=== PATIENT | female | born 1990 | race Caucasian/White ===

== ENCOUNTER 2017-04-19 00:36 | Inpatient (IN) | payer OTHER ==
[~2017-04-19] VITALS: Ht 154.9 cm; Wt 77.3 kg
[2017-04-19] VITALS (18 sets, daily range): BP systolic 104–111; BP diastolic 61–73; PULSE 64–99; TEMP 36.1–36.7; O2SAT 96–100; Ht 154.9 cm; Wt 77.3 kg
[~2017-04-19 00:36] MED LIST: PRENTAB26 PO
[2017-04-19] MEDS ORDERED: LACTATED RINGER'S 1000ML 1,000 ML IV SCH ×3 (00:48→02:46)
[2017-04-19] MEDS ORDERED: CITRIC ACID/SODIUM CITRATE 15 ML UDC PO STA (01:02)
[2017-04-19] MEDS ORDERED: CEFAZOLIN IV 2,000 MG in SYRINGE 0 ML IV STA (01:02)
[2017-04-19 01:18] LABS: BASO % 0.2 %; BASO ABS # 0.02 K/uL (0-0.2); EOS % 0.9 %; IG% 0.2 %; LYMPH % 23.5 %; LYMPH ABS # 1.98 K/uL (1.2-3.4); MEAN CELL VOLUME 81.5 fL (80-100); MEAN CORPUSCULAR HEMOGLOBIN 26.2 pg (25-34); MEAN PLATELET VOLUME 10.2 fL (7.4-10.4); MONO % 8.3 %; NEUT % 66.9 %; PLATELET COUNT 149 K/uL (130-400); RED BLOOD COUNT 4.05 M/uL (4.2-5.4); WHITE BLOOD COUNT 8.44 K/uL (4.8-10.8)
--- NOTE | 2017-04-19 01:20 | HISTORY & PHYSICAL EXAMINATION ---
DATE OF ADMISSION: 04/19/2017 HISTORY OF PRESENT ILLNESS: Tere arrived in the dumper operator of 04/19/2017. She is 40 weeks and 0 days. She has had 2 prior sections and was scheduled for a section 3 days from now with Dr. Nuno. She reported having contractions, no leakage of fluid, and presented to the hospital. On presentation, her heart rate is category 1, she is having contractions every 5-6 minutes, her cervix is 2-3 cm. HISTORY: She is group B strep negative. Labs normal, ultrasound normal. MEDICAL HISTORY: Healthy. REVIEW OF SYSTEMS: Negative. PHYSICAL EXAMINATION: VITAL SIGNS: Stable. She is afebrile. CHEST: Clear. CARDIOVASCULAR: Normal rate and rhythm. No audible murmur. ABDOMEN: Gravid. heart rate reactive. CERVIX: 2-3 cm, 50%. IMPRESSION AND PLAN: Discussed that she is 40 weeks and there is no advantage to waiting at this stage and she does look like she is entering labor, so we recommended . Discussed the risks including but not limited to the risks of bleeding, infection, injury to bowel, bladder, ureter, vessels, deep vein thrombosis, pulmonary embolus. The patient agrees to section. She does not wish tubal ligation. Full informed consent.
[2017-04-19 01:21] LABS: COMPLETE YES; MEAN CORPUSCULAR HGB CONC 32.1 g/dl (32-36)
[2017-04-19] MEDS ORDERED: OXYTOCIN INJ 10 UNITS/ML VIAL ONE (01:35)
[2017-04-19] MEDS ORDERED: FENTANYL CITRATE INJ 50 MCG/1 ML 2 ML VIAL ONE (01:36)
[2017-04-19] MEDS ORDERED: MoRPHine SULFATE PF 1 MG/ML 10 ML AMP/VIAL ONE (01:37)
[2017-04-19 01:39] LABS: ALB/GLOB RATIO 0.8 (0.9-2); ALKALINE PHOSPHATASE 146 U/L (45-117); ALT/SGPT 32 U/L (12-78); AST/SGOT 22 U/L (15-37); BLOOD UREA NITROGEN 8 mg/dl (7-18); BUN/CREATININE RATIO 14.8 (10-20); CARBON DIOXIDE 22 mmol/L (21-32); CHLORIDE 108 mmol/L (98-107); CREATININE 0.52 mg/dl (0.60-1.20); GLUCOSE 86 mg/dl (70-99); POTASSIUM 3.5 mmol/L (3.5-5.1); SODIUM 139 mmol/L (136-145)
[2017-04-19] MEDS ORDERED: BUPIVACAINE 0.5 % 5 MG/1 ML PF 10ML VIAL ONE (02:10)
[2017-04-19] MEDS ORDERED: PHENYLEPHRINE 100MCG/ML 5ML SYR ONE (02:21)
[2017-04-19] MEDS ORDERED: EpHEDrine SULFATE 50MG/5ML SYR ONE (02:21)
--- NOTE | 2017-04-19 02:48 | [facility] Post Operative Brief Note ---
Immediate Operative Summary Operative Date Apr 19, 2017. Pre-Operative Diagnosis repeat C/S, labor Post-Operative Diagnosis same Procedure(s) Performed Low segment transverse C/S Surgeon Susannah Metal Ceiling Hanger Surgeon(s) Solpaul Estimated Blood Loss 600ml Findings normal anatomy Specimens Cord gases Drains Houser Anesthesia Spinal/local Disposition L&D
[2017-04-19] MEDS ORDERED: NALOXONE HCL INJ 0.08 MG in SYRINGE 1.8 ML IV PRN (02:58)
[2017-04-19] MEDS ORDERED: LACTATED RINGER'S 1000ML 500 ML IV PRN (02:58)
[2017-04-19] MEDS ORDERED: NALOXONE HCL INJ 1 MG in SODIUM CHLORIDE 0.9% 1000ML 1,000 ML IV PRN ×4 (02:58)
[2017-04-19] MEDS ORDERED: SODIUM CHLORIDE 0.9% 1000ML 1,000 ML IV PRN (02:58)
[2017-04-19] MEDS ORDERED: SUPERCREAM 0.870 % 15GM JAR EXT PRN (03:00)
[2017-04-19] MEDS ORDERED: DC INTRASPINAL MORPHINE SCH (03:00)
[2017-04-19] MEDS ORDERED: SENNA 8.6 MG TAB PO PRN (03:00)
[2017-04-19] MEDS ORDERED: EpHEDrine SULFATE INJ 50 MG/ML AMP IV PRN (03:00)
[2017-04-19] MEDS ORDERED: NALBUPHINE HCL INJ 10 MG/ML AMP IV PRN (03:00)
[2017-04-19] MEDS ORDERED: DiphenhydrAMINE HCL 50 MG/ML VIAL IV PRN ×2 (03:00→20:00)
[2017-04-19] MEDS ORDERED: ONDANSETRON INJ 2 MG/ML 2 ML VIAL IV PRN ×2 (03:00→21:00)
[2017-04-19] MEDS ORDERED: LANOLIN OINT EXT PRN ×2 (03:00)
[2017-04-19] MEDS ORDERED: PROMETHAZINE HCL INJ 25 MG in SODIUM CHLORIDE 0.9% 50ML 50 ML IV PRN ×2 (03:00→21:00)
[2017-04-19] MEDS ORDERED: BENZOCAINE 20% AER SPR 82.5 GM CAN EXT PRN (03:00)
[2017-04-19] MEDS ORDERED: MAGNESIUM HYDROXIDE SUSP 30 ML UDC PO PRN (03:00)
[2017-04-19] MEDS ORDERED: HYDROCORTISONE ACETATE 25 MG SUPP PR PRN (03:00)
[2017-04-19] MEDS ORDERED: NO NARCOTICS OR SEDATIVES SCH (03:00)
[2017-04-19] MEDS ORDERED: NALOXONE HCL 0.4 MG/1 ML VIAL/CARP IV PRN (03:00)
[2017-04-19] MEDS ORDERED: MoRPHine SULFATE PF 1 MG/ML 10 ML AMP/VIAL EPI PRN (03:00)
--- NOTE | 2017-04-19 03:04 | Anesthesiology Progress Note ---
Anesthesia Post Op Note Date & Time Apr 19, 2017 at 03:04 Notes Mental Status: alert / awake / arousable, participated in evaluation Pt Amnestic to Procedure: No Nausea / Vomiting: adequately controlled Pain: adequately controlled Airway Patency, RR, SpO2: stable & adequate BP & HR: stable & adequate Hydration State: stable & adequate Neuraxial Anesthesia: was administered, sensory block is resolving Anesthetic Complications: no major complications apparent
[2017-04-19] MEDS: OXYTOCIN INJ 20 UNITS in LACTATED RINGER'S 1000ML 1,000 ML IV SCH ×2 (03:19→11:23)
[2017-04-19] MEDS: KETOROLAC TROMETHAMINE 30 MG/ML VIAL IV. PRN ×2 (05:29→15:53)
[2017-04-19] MEDS ORDERED: CEFAZOLIN IV 2,000 MG in DEXTROSE 5% 50ML 50 ML IV SCH (06:00)
--- NOTE | 2017-04-19 07:02 | OPERATIVE REPORT ---
DATE OF OPERATION: 04/19/2017 PREOPERATIVE DIAGNOSES: 1. Repeat section. 2. The patient in active labor. POSTOPERATIVE DIAGNOSES: 1. Repeat section. 2. The patient in active labor. PROCEDURE: Low segment transverse section. SURGEON: Axel Davalos MD. HAIR SPINNING MACHINE OPERATOR: Alyssa Small RN. ESTIMATED BLOOD LOSS: 600 mL. FINDINGS: Normal anatomy. SPECIMENS: Cord gases. DRAINS: Houser catheter. ANESTHETIC: Spinal and 0.5% Marcaine local anesthetic. DISPOSITION: Labor and delivery. DESCRIPTION OF PROCEDURE: Tere was given a spinal anesthetic, prepped and draped in supine position with a leftward tilt. Houser catheter placed by nursing. We did test the area for adequacy of block and on her upper right side, it was somewhat inadequate so we injected with 10 mL of 0.5% Marcaine and this improved things. It should be noted she received 2 grams Ancef preop. Incision made on the previous Pfannenstiel, cutting down to subcutaneous fat through the fascia. It should be noted her rectus muscles were completely , likely related to prior pregnancies or cesareans. We were able to cut the fascia and dissect away from the rectus muscles laterally and again there were split in the midline already. Peritoneal cavity was entered in superior location and then extended opening to allow exposure. Bladder retractor placed and then Metzenbaums used to dissect the bladder flap away and then scalpel used to make a low transverse incision on the uterus. Entry into the uterus was done bluntly and then opening extended bluntly with the flex o writer operator's fingers. Membranes were ruptured at this stage and then baby was delivered by gentle flexion of the head and then pressure on the abdomen. Mouth and then nares suctioned. There was some thin meconium. No nuchal cord. Baby delivered vigorous male . Cord clamped and cut. Cord gases obtained. Cord blood obtained. Placenta removed. IV Pitocin started. Uterus exteriorized. We ensured all the placenta was removed and then uterus closed in the usual fashion, a running 0 Monocryl locked and second reinforcing 0 Monocryl nonlocked. After generous irrigation and suction of the cul-de-sac and bladder flap regions, uterus was placed back in the peritoneal cavity and hemostasis was excellent. We checked in the retropubic area, hemostasis was excellent. The rectus muscles were too widely that I could not bring them together without tearing the muscle so these were not reapproximated. The fascia was then closed with 0 Vicryl and then reinforcing interrupted 0 Vicryls. Subcutaneous fat irrigated and closed with 2-0 Vicryl and skin closed with 4-0 subcuticular Monocryl. Sponge and instrument counts correct. Urine was clear at the end of procedure. Steri-Strips applied to the incision. I attest to the content of the Intraoperative Record and any orders documented therein. Any exception s are noted below.
[2017-04-19] MEDS ORDERED: MEASLES, MUMPS & RUBELLA VIRUS VIAL SQ. ONE (08:30)
[2017-04-19] MEDS: DOCUSATE SODIUM 100 MG CAP PO SCH ×2 (08:49→20:33)
[2017-04-19] MEDS: SIMETHICONE 80 MG CHEW PO SCH ×4 (08:49→20:33)
[2017-04-19] MEDS: PRENATAL VITAMIN TAB PO SCH (08:49)
[2017-04-19] MEDS ORDERED: ZOLPIDEM TARTRATE 5 MG TAB PO PRN (21:00)
[2017-04-19] MEDS ORDERED: KETOROLAC TROMETHAMINE 30 MG/ML VIAL IV. PRN (21:00)
[2017-04-19] MEDS ORDERED: OXYCODONE/ACETAMINOPHEN 5-325 TAB PO PRN ×2 (21:00)
[2017-04-19] MEDS ORDERED: MEPERIDINE HCL 50 MG/ML CARP IV PRN ×2 (21:00)
[2017-04-19] MEDS ORDERED: ACETAMINOPHEN/CODEINE 300/30MG TAB PO PRN (22:15)
[2017-04-20] MEDS ORDERED: TYLENOL #3 HOME PACK PO SCH
[2017-04-20] MEDS ORDERED: MOTRIN HOME PACK 600 MG (4)BTL PO SCH
--- NOTE | 2017-04-20 06:29 | OB/GYN Progress Note ---
[facility] Progress Note Date of Service Apr 20, 2017. Subjective conversation w/ patient, physical exam, chart review, lab review Ambulation: ambulating normally Voiding: no voiding problems Passing Gas: Yes Diet Tolerance: Clear Liquids Lochia: Small Feeding Type: Breast Feeding Pain: 2/10 pain Review of Systems Constitutional: No fever, No chills Respiratory: No shortness of breath Cardiac: No chest pain Abdomen: No nausea, No vomiting Female : No dysuria Objective Vital Signs Date Time Temp Pulse Resp B/P (MAP) Pulse Ox O2 Delivery O2 Flow Rate FiO2 04/19/17 23:15 96 Room Air 04/19/17 23:15 36.7 69 18 104/61 (75) 96 Room Air 04/19/17 21:15 20 99 04/19/17 20:39 36.5 99 20 111/73 (86) 99 Room Air 04/19/17 20:05 18 99 04/19/17 19:07 18 98 04/19/17 18:15 18 99 04/19/17 17:15 18 97 04/19/17 16:15 18 99 04/19/17 15:30 36.6 64 16 108/72 (84) 99 Room Air 04/19/17 15:30 99 Room Air 04/19/17 15:15 16 99 04/19/17 14:15 16 99 04/19/17 13:15 16 99 04/19/17 12:15 16 100 04/19/17 11:15 16 100 04/19/17 11:15 36.6 65 16 107/72 (84) 99 Room Air 04/19/17 10:15 16 100 04/19/17 09:15 16 99 04/19/17 08:15 16 99 04/19/17 07:15 16 97 04/19/17 07:15 97 Room Air 04/19/17 07:15 97 Room Air 04/19/17 07:15 36.1 69 16 107/71 (83) 97 Room Air Physical Exam General Appearance: WELL-APPEARING Respiratory/Chest: lungs clear, normal breath sounds Cardiovascular: regular rate, rhythm, no murmur Abdomen: normal bowel sounds, non tender, soft Fundus: Firm, Relation to Umbilicus (1 Fb below) Incision Description: Clean, Dry & Intact Extremities: non-tender, no pedal edema Laboratory Results Last 24 Hours Test 04/20/17 06:00 Assessment and Plan Post-Op Day Number: 1 Continue Routine Care: A/P: This is a 27 y/o female, , s/p [] day 1. She is ambulating and clinically stable. Plan: - Vitals signs are reviewed and WNL (Tmax 36.7) - Last Hgb is 10.6 this AM is pending - Blood type A+, GBS neg, Rubella non-immune - Routine post operative care - Encourage ambulation, monitor and control pain with medication as needed, continue with regular diet as tolerated and monitor lochia - Stool softeners and sitz bath recommended - Encourage breast feeding and educate about breast feeding Resident Physician Supervision Note: I was present with Dr. Corral during the history and exam. I discussed the case with the resident and agree with the findings and plan as documented in the note. Any exceptions or clarifications are listed here: POD#1 doing well. Asking to go home. Pt is feeling well, physical exam is benign, will await labs. Discharge instructions discussed - if feeling well later today, anticipate discharge home. Documented By: Alisa Toro Resident Involvement: Resident Care Provided Care Provided: OB Delivery
--- NOTE | 2017-04-20 06:52 | Discharge Instructions ---
Discharge Instructions Date of Service Apr 20, 2017. Admission Reason for Admission: Previous Delivery Affecting Discharge Discharge Diagnosis / Problem: after delivery Discharge Goals Goal(s): Routine recovery after surgery Medications Continue Dispensed Medications: supercream, dermaplast, tucks, lansinoh Activity Recommendations Activity Limitations: per Instructions/Follow-up section . Instructions / Follow-Up Instructions / Follow-Up ACTIVITY RECOMMENDATIONS: * Gradual return to full activity over the next 2-3 weeks. * No lifting - nothing heavier than baby over the next 2-3 weeks. * Do not engage in vigorous exercise, sexual activity or sports until cleared by your physician. * Do not drive or operate any motorized equipment until cleared by your physician. * You may shower/bathe daily. MEDICATIONS: For discomfort or pain, you may use Acetaminophen (Tylenol), Ibuprofen (Advil), or Naproxen (Aleve) following the package directions. For constipation you may use Colace following the package directions. BREAST CARE: If you are not breast feeding: * Wear a supportive bra 24 hours a day for one to two weeks. * Avoid stimulating your breasts and nipples as much as possible during the first few weeks after delivery. * When taking a shower, have the warm water hit your back, not breasts. * When your breasts feel full, apply ice packs. Usually three to four times a day helps ease the discomfort. * Take a mild pain medication (Tylenol / Motrin) when you are uncomfortable. If breast feeding: * Use breast milk to lubricate nipples. Lansinoh cream may be used for sore nipples. You do not need to remove cream prior to breast feeding. If using a different brand of cream, check the label for directions regarding removal of cream prior to nursing. * Wear a supportive bra. * If having problems with breasts or breast feeding, call a risk assessment consultant or your health care provider. SPECIAL CARE INSTRUCTIONS: When you are discharged from the hospital, it is important for you to follow the instructions listed below: * During the first week at home, you should be able to care for yourself and your baby. In addition, the usual light household activities are encouraged. * Limit your activities to the way you feel. Do not try to clean the house or move furniture. Be sensible. * If you actively engage in sports and have done so up until the time of your delivery, you may resume these activities as soon as you feel able. This may take up to one month or even longer. Use good judgment. * Continue to take your vitamins for at least six weeks after the of your baby. * Your diet need not be limited unless you were on a special diet before your delivery. Breast-feeding mothers need around 2500 calories per day and at least 64-80 ounces of fluid per day (8 to 10 glasses). * You should eat foods from the four major food groups. Crash diets or fad diets are to be avoided. Eating lean meats, fresh fruits and vegetables, low-fat dairy products, high fiber foods and a regular exercise program, will help you get back to your pre- weight without putting your health at risk. * Constipation is sometimes a problem after delivery. Take a mild laxative as needed. If breast feeding, Milk of Magnesia is acceptable to use. You may use a suppository or Fleets enema. * A daily shower or tub bath is suggested. Wash incision daily with warm soapy water and pat dry. It doesn't need to be covered unless drainage is present. * A bloody vaginal discharge will usually continue until around four weeks . A small amount of bleeding may continue for as long as six weeks. Vaginal discharge changes from the bright red bleeding after delivery to pink then brownish and finally yellowish-pink before becoming white and disappearing. * Bleeding may increase with activity. Your first period may come in 4-8 weeks. If you are breast feeding, your period may be delayed even longer. * [place] (sex) can begin whenever both you and your partner feel comfortable and do not have any form of genital infection. It is recommended that you wait at least six weeks for internal and external healing to occur. If you have questions, please talk to your health care practitioner. A condom should be used to prevent infection and . * Foreplay, gentle intercourse and lubrication is very important the first several times to prevent pain. A water-based lubricant such as K-Y jelly or Astroglide may be used. * If you have RH negative blood and your baby is RH positive, you will receive RHOGAM by injection prior to discharge. The nurse will give you a card to keep with you that has the date and place that you received RHOGAM after delivery. * During your care, you had a Rubella screen done to check for the presence of rubella antibodies in your blood. If your test was negative, you will receive a Rubella vaccine prior to discharge. This vaccine may cause a fever, soreness at the injection site and flu-like symptoms. If these symptoms persist, notify your health care practitioner. is not advised for one month after a Rubella vaccine. * Verbalizes understanding of car seat law as reviewed with patient nursing. * Car Seat hand-out given and reviewed with patient by nursing. * Shaken baby information reviewed with patient by nursing. Call you doctor if: * Heavy bleeding (saturating several pads an hour) or passing clots the size of your fist. * A fever >101 degrees F (38.3 degrees C) on two occasions four hours apart and /or chills. * Unusual pain in the pelvic or vaginal areas. * Call the doctor for any increased redness, drainage or swelling around the incision and any pain unrelieved by prescribed pain medication. * "Baby Blues" lasting longer than two weeks. If you have any questions or concerns, call your health care practitioner at . FOLLOW UP VISIT: * Please call the office at to schedule a 6 week examination. It is important you keep this appointment. It is important for you to make arrangements for either yearly or twice yearly check-ups thereafter. Current Hospital Diet Patient's current hospital diet: Regular OB Diet Discharge Diet Recommended Diet: Regular Diet Procedures Procedures Performed: Section of Live Male Child at 0219 Pending Studies Studies pending at discharge: no Medical Emergencies . Who to Call and When: Medical Emergencies: If at any time you feel your situation is an emergency, please call [phone] immediately. . Non-Emergent Contact Non-Emergency issues call your: Heavy Lift Rigger . . "Provider Documentation" section prepared by Iglesia Corral. . VTE Core Measure Inpt VTE Proph given/why not?: SCD's
[2017-04-20] MEDS: PRENATAL VITAMIN TAB PO SCH (07:25)
[2017-04-20] MEDS: SIMETHICONE 80 MG CHEW PO SCH ×4 (07:25→19:40)
[2017-04-20] MEDS: DOCUSATE SODIUM 100 MG CAP PO SCH ×2 (07:26→19:40)
[2017-04-20] MEDS: IBUPROFEN 600 MG TAB PO PRN ×4 (07:26→23:27)
[2017-04-20] MEDS: ACETAMINOPHEN/CODEINE 300/30MG TAB PO PRN ×4 (07:26→23:28)
[2017-04-20] MEDS ORDERED: OXYC-57 PO (07:35)
[2017-04-20 07:55] LABS: BASO % 0.2 %; BASO ABS # 0.01 K/uL (0-0.2); COMPLETE YES; EOS % 0.8 %; HEMATOCRIT 30.2 % (37-47); IG% 0.3 %; LYMPH % 19.5 %; LYMPH ABS # 1.24 K/uL (1.2-3.4); MEAN CELL VOLUME 82.7 fL (80-100); MEAN CORPUSCULAR HEMOGLOBIN 25.5 pg (25-34); MEAN CORPUSCULAR HGB CONC 30.8 g/dl (32-36); MEAN PLATELET VOLUME 10.6 fL (7.4-10.4); MONO % 5.8 %; NEUT % 73.4 %; PLATELET COUNT 145 K/uL (130-400); RED BLOOD COUNT 3.65 M/uL (4.2-5.4); WHITE BLOOD COUNT 6.35 K/uL (4.8-10.8)
[2017-04-20 08:10] VITALS: BP 118/74; PULSE 77; TEMP 36.6; O2SAT 97
[2017-04-20 08:12] VITALS: O2SAT 97
[2017-04-20 15:30] VITALS: BP 116/76; PULSE 72; TEMP 36.8; O2SAT 98
[2017-04-20 18:33] VITALS: BP_DIAS 76; PULSE 72; TEMP 36.8
[2017-04-20] MEDS ORDERED: BISACODYL 5 MG TABEC PO ONE (22:00)
[2017-04-20] MEDS ORDERED: ACET-749 PO (23:11)
[2017-04-20] MEDS ORDERED: MOTRIN HOME PACK 600 MG (4)BTL PO ONE (23:15)
[2017-04-20] MEDS ORDERED: TYLENOL #3 HOME PACK PO ONE (23:15)
[2017-04-21] MEDS ORDERED: TYLENOL #3 HOME PACK PO SCH (08:00)
[2017-04-21] MEDS ORDERED: BISACODYL 10 MG SUPP PR PRN (22:45)
--- NOTE | 2017-04-24 08:20 | DISCHARGE SUMMARY ---
Tere had a section on the delivery lead of April 19. This was for active labor. She was at 40 weeks and 4 days gestation with 2 prior sections. By April 21, she met discharge criteria. She was assessed by the team at that time. Ambulating, passing flatus, tolerating an oral diet, had minimal bleeding. PHYSICAL EXAMINATION: VITAL SIGNS: Stable. She was afebrile. ABDOMEN: Benign, nontender. Fundus was firm. Incision was clean, dry and intact. EXTREMITIES: Negative. IMPRESSION AND PLAN: Discharged home on postop day #1 per the note. Discharged by Dr. Toro. Hemoglobin 9.6 on discharge. Given appropriate pain medication and told to follow up in the office.
== END 2017-04-20 23:55 | disposition home or self-care (01) | DRG 766 ==
LOC: C.OPB 00:36 → C.LD 00:37 → C.OPB 00:58 → C.OBG 06:47
PROVIDERS: ADMIT Obstetrics & Gynecology; ATTEND Obstetrics & Gynecology
PROC: 10D00Z1 Extraction of Products of Conception, Low, Open Approach (ICD-10-PCS; principal; 2017-04-19 01:13)
DX: O34.219 Maternal care for unspecified type scar from previous cesarean delivery (principal); Z3A.40 40 weeks gestation of pregnancy; Z37.0 Single live birth

== ENCOUNTER 2022-02-16 14:07 | Observation (INO) ==
--- NOTE | 2022-02-16 15:11 | History & Physical Report ---
Date of Service February 16, 2022 Assessment & Plan (1) Abdominal pain in : (2) 33 weeks gestation of : Plan not sure about cause of her extreme pain. no evid of labor thus far. offered iv vs. po hydration--pt desires latter. plan labs. some tachycardia that seems to be improving with hydration thus far. explained to couple that i am unsure what is causing her pain as nothing else as far as symptom leans toward an etiology. will send covid test. History of Present Illness Chief Complaint: abdominal pain Primary Care Provider: NO PCP 31yo (twins) at 33+wks juju presents to L&D with abdominal pain. She notes contractions started last pm at 1030pm. She notes constant abdominal pain starting at that time. Her contractions in the last hour have been about 5. She notes no rom, no vb. +FM. She is normally quite able to tolerate pain but when pain persisted today she told her she needed to come to hospital. She notes eating salad about 5hr ago and tolerating po. No nausea/vomiting. No diarrhea or constipation. Normal bowel movement this am. No urinary sx. No blood in urine. No back pain. The abdominal pain is about at her fundus and then can radiate laterally along sides of her abdomen. Pain not in lower pelvis. No history of trauma to her abdomen. PNC c/b 1. IUGR previously in this but at last u/s at 32wks EFW 17% and so taken off protocol 2. H/o MALI in early and history of spotting/bleeding early in , since 26wk has resolved. 3. Rubella non immune-plan mmr pp 4. Prior c/s x 4 PNL rh pos, ri, gbs not done OB[facility]: c/s x 4, sab x 1 GY[facility]: nl paps, no stds Allergies Allergy/AdvReac Type Severity Reaction Status Date / Time No Known Drug Allergies Allergy Verified 02/04/22 10:03 Home Medications Medication Instructions Recorded Confirmed Type prenat.vits,simón,xyw-rdor-ovtuz 1 tab PO DAILY 05/04/20 02/04/22 History Patient History Medical History (Updated 02/16/22 @ 15:08 by Rosalinda Velasquez MD, FACOG) Dichorionic diamniotic twin gestation Hip fracture right History of chicken pox Menorrhagia Need for vaccination against rubella Nexplanon insertion Small for gestational age fetus affecting management of mother in rg in first trimester Unknown date of last menstrual period, antepartum Surgical History (Updated 12/23/21 @ 11:32 by Heather Garcia MD) H/O: History of delivery History of cranioplasty Previous delivery affecting , antepartum Family History Grandmother (Maternal) Colorectal cancer Denies family history of Ovarian cancer Breast cancer Social History (Updated 09/24/21 @ 13:10 by Madhavi Patel) Smoking Status: Never smoker marital status: marital status details: [facility] (33) Current Living Situation: Spouse and Family Current Living Situation Comment: lives with spouse, 5 children, outside pets current occupational status: unemployed current occupation: homemaker Review of Systems as per Subjective / HPI Physical Exam Constitutional: WD/WN, vitals as above Respiratory: normal respiratory effort, lungs clear to auscultation Cardiovascular: Rate/Rhythm: regular rate and regular rhythm Gastrointestinal (Abdomen): soft gravid tender at fundus even with light touching of abdomen. no peritoneal signs. no cva tenderness. Musculoskeletal: no edema nontender calves Neurologic: grossly normal Psychiatric: A+Ox3, euthymic affect Genitourinary: no CVA tenderness Manual OB Exam: + cervical dilation (closed), + cervical effacement (long) and + station high OB Exam Monitor Tracing: + external FHT monitor used, + external uterine monitor used (irreg, vs irritability), + category I and + normal FHT variability Speculum exam, cx visually closed. ffn obtained. no evid of rom or bleeding. gbs obtained and rna probe in case needs to be sent. Results & Data ([facility]) Vital Signs (Past 12 Hours) Vital Signs Temp Pulse Resp BP 02/16/22 14:12 98.1 F 100 H 22 106/69 Coding Level of Care Code None Diagnoses Abdominal pain in O26.899; R10.9 33 weeks gestation of Z3A.33
[2022-02-16 15:30] LABS: Basophils # (auto) 0.02 K/uL (0-0.2); Basophils % (auto) 0.2 %; Eosinophils # (auto) 0.01 K/uL (0-0.50); Eosinophils % (auto) 0.1 %; Hematocrit (blood only) 34.8 % (34.1-44.9); Hemoglobin 11.5 g/dl (12.0-16.0); Immature Granulocytes # (auto) 0.04 K/uL (0.00-0.02); Immature Granulocytes % (auto) 0.4 %; Lymphocytes % (auto) 6.3 %; Mean Corpuscular Hemoglobin 27.5 pg (25.0-34.0); Mean Corpuscular Volume 83.3 fL (80.0-100.0); Mean Platelet Volume 9.3 fL (9.4-12.3); Monocytes # (auto) 0.39 K/uL (0.24-0.82); Monocytes % (auto) 3.5 %; Neutrophils # (auto) 9.95 K/uL (1.4-6.5); Neutrophils % (auto) 89.5 %; Platelet Count 164 K/uL (130-400); RDW Coefficient of Variation 13.8 % (11.5-14.5); RDW Standard Deviation 41.5 fL (36.4-46.3); Red Blood Count 4.18 M/uL (3.93-5.22); White Blood Count 11.11 K/ul (4.8-10.8)
[2022-02-16 16:01] LABS: Appearance Urine Clear (Clear); Bilirubin Urine Negative (Negative); Blood Urine Negative (Negative); Color Urine Yellow; Glucose Urine UA Negative (Negative); Ketones Urine Trace (Negative); Leukocyte Esterase Urine Negative (Negative); Nitrite Urine Negative (Negative); Protein Urine Negative (Negative); Specific Gravity Urine 1.008 (1.000-1.030); Urobilinogen Urine Negative (Negative); pH Urine 8.5 (4.5-7.5)
[2022-02-16] MEDS ORDERED: LACTATED RINGER'S 500 ML IV ONE (16:23)
--- NOTE | 2022-02-16 16:34 | Obstetrical Progress Note ---
Date of Service February 16, 2022 Assessment & Plan (1) 33 weeks gestation of : (2) Abdominal pain in : (3) Previous delivery affecting , antepartum: Plan no evidence of overt infection. wbc normal for and no fever. no evid of uti or poor hydration. no improvement in pain. no evidence of ptl thus far and ffn neg. tachycardia improved but now back. will ivf bolus at this point. keep npo. plan bedside u/s for dvp and evaluate lower uterine segment and abd u/s limited to look for any evidence of intrabdominal fluid/collections. again so far unclear cause of pain. cont to monitor closely. Subjective per nurse pt still with continued pain. thus far wbc 11, some shift. ua neg and normal specific gravity. ffn neg. hgb stable. Physical Exam Constitutional: WD/WN, vitals as above Genitourinary: OB Exam Monitor Tracing: + external FHT monitor used ( tachy 170, mod variability, ), + external uterine monitor used (Irrit with occas ctx) and + category I Results & Data ([facility]) Vital Signs (Past 12 Hours) Vital Signs Temp Pulse Resp BP 02/16/22 14:12 98.1 F 100 H 22 106/69 PG Care Time/CCT Total # of Minutes Spent Total Time Spent with Patient: Total time spent is greater than 50% in coordination of care (as documented) at patient's floor/unit and/or counseling patient: Coding Level of Care Code None Diagnoses 33 weeks gestation of Z3A.33 Abdominal pain in O26.899; R10.9 Previous delivery affecting , antepartum O34.219
[2022-02-16] MEDS: LACTATED RINGER'S 1,000 ML IV SCH ×2 (16:42→19:24)
--- NOTE | 2022-02-16 17:56 | Ultrasound Report ---
US OB limited CLINICAL HISTORY: tachycardia, prior c/s x 4, eval KATELIN, dvp COMPARISON STUDY: OB ultrasound February 04, 2022. TECHNIQUE: Transabdominal sonography of the fetus was performed. FINDINGS: Single viable intrauterine gestation is noted. heart rate is mildly elevated at 165 b pm. Please note that a dedicated anatomical survey was not performed. Femur length was 6.5 cm w hich corresponds to an estimated gestational age of 33 weeks and 4 days. Placenta is located anterior ly. No placental abnormality was noted. The deepest vertical pocket was 3.9 cm. The cervix was obscur ed on this exam. IMPRESSION: 1. Single viable intrauterine gestation. Mildly elevated heart rate of 165 bpm. 2. Deepest vertical pocket was 3.9 cm. 3. Cervix obscured. 4. No placental abnormality. ACT 112: Negative or not required by law. Electronically signed by: Delon Rodriguez M.D. 02/16/2022 5:54 PM
--- NOTE | 2022-02-16 17:59 | Ultrasound Report ---
ABDOMINAL ULTRASOUND, RIGHT UPPER QUADRANT HISTORY: Abdominal pain, 33wk preg, h/o c/s x 4, gb eval. COMPARISON: None. FINDINGS: The liver is sonographically normal. There is no biliary ductal dilatation. Gallbladder is normal. There are no gallstones. Pancreas is unremarkable by sonography although the head and tail ar e slightly obscured. There is mild right hydronephrosis. No ascites is identified. IMPRESSION: 1. No gallstones or biliary ductal dilatation. 2. Mild right hydronephrosis which may be due to mass effect upon the distal ureter by the gravid [place]rokee pat. ACT 112: Negative or not required by law. Electronically signed by: Delon Rodriguez M.D. 02/16/2022 5:58 PM
[2022-02-16] MEDS ORDERED: OPTIRAY 300 500mL IV ONE (18:24)
[2022-02-16] MEDS ORDERED: ACETAMINOPHEN 325 MG TAB PO STA (18:42)
--- NOTE | 2022-02-16 19:08 | CT Scan Report ---
CT ANGIOGRAPHY OF THE CHEST, PULMONARY EMBOLUS PROTOCOL CLINICAL HISTORY: Shortness of breath. . COMPARISON STUDY: No previous studies for comparison. TECHNIQUE: Following IV administration of Optiray, helical axial images of the chest were obtained ut ilizing the pulmonary embolus protocol. Maximal intensity projections and sagittal and coronal refor mats were viewed on an independent 3D workstation. IV contrast was administered without complication . Automated exposure control was utilized for the study. A dose lowering technique was utilized adh ering to the principles of ALARA. CT DOSE: 412.95 mGycm FINDINGS: This study is significantly compromised given mixing artifact which affects visualization of the main, left and right pulmonary arteries as well as the upper lobe vessels. No lobar lobe pulmo nary emboli are identified. Size of the heart is normal. There is no pericardial effusion. No thoraci c aortic dissection is present. Central airways are patent. No consolidation to suggest pneumonia. Th ere is no pneumothorax or pleural effusion. No acute fracture within the visualized bony thorax. Visu alized portions of the upper abdomen are unremarkable. IMPRESSION: 1. Exam significantly compromised due to mixing artifact, as described above. However, no pulmonary e mboli identified. 2. No acute intrathoracic findings. ACT 112: Negative or not required by law. Electronically signed by: Delon Rodriguez M.D. 02/16/2022 7:06 PM
--- NOTE | 2022-02-16 19:19 | Obstetrical Progress Note ---
Date of Service February 16, 2022 Assessment & Plan (1) 33 weeks gestation of : (2) Abdominal pain in : Plan: no source of pain identified. u/s findings reviewed with couple and unyielding. u/s tech notes pt did tolerate exam well overall, better than expected given her complaints. will plan labs again at 9pm, observe overnight reviewed (3) SOB (shortness of breath): Plan: given no findings thus far and some deep inspiration pain, chest CT ordered and no significant findings. Plan thus far >2hr spent, face to face, non face to face and documentation and >70min spent bedside Subjective pt seen during her ob u/s exam at bedside. was able to tolerate quite well deep pressure in RUQ. much more tenderness almost with more soft wiping of gel off her abdomen. noted some more sob and deep breathing associated pain, ?pleuritic, no leg pain. Review of Systems Constitutional: as per Subjective / HPI Physical Exam Constitutional: WD/WN, vitals as above (mild tachycardia, normal pulse ox on RA) Genitourinary: OB Exam Monitor Tracing: + external FHT monitor used, + exter nal uterine monitor used (irreg ctx and irrit), + category I and + normal FHT variability (improved baseline to 150, spont accels. ) Results & Data ([facility]) Vital Signs (Past 12 Hours) Vital Signs Temp Pulse Resp BP Pulse Ox 02/16/22 17:45 93 H 100 02/16/22 17:58 95 H 100 02/16/22 17:53 92 H 100 02/16/22 17:48 93 H 100 02/16/22 17:43 93 H 100 02/16/22 17:38 106 H 100 02/16/22 17:28 98 H 99 02/16/22 17:23 100 H 100 02/16/22 17:18 94 H 100 02/16/22 17:13 98 H 100 02/16/22 17:08 94 H 100 02/16/22 17:03 93 H 100 02/16/22 16:58 96 H 100 02/16/22 16:53 94 H 100 02/16/22 16:48 101 H 99 02/16/22 16:43 98 H 100 02/16/22 14:12 98.1 F 100 H 22 106/69 PG Care Time/CCT Total # of Minutes Spent Total Time Spent with Patient: Total time spent is greater than 50% in coordination of care (as documented) at patient's floor/unit and/or counseling patient: Coding Level of Care Code INT OBSERVATION CARE 70M LVL 3 Diagnoses 33 weeks gestation of Z3A.33 Abdominal pain in O26.899; R10.9 SOB (shortness of breath) R06.02
[2022-02-16 21:07] LABS: Hematocrit (blood only) 29.9 % (34.1-44.9); Hemoglobin 9.9 g/dl (12.0-16.0); Mean Corpuscular Hemoglobin 27.2 pg (25.0-34.0); Mean Corpuscular Hgb Conc 33.1 g/dL (32.0-36.0); Mean Corpuscular Volume 82.1 fL (80.0-100.0); Mean Platelet Volume 9.5 fL (9.4-12.3); Platelet Count 144 K/uL (130-400); RDW Coefficient of Variation 13.8 % (11.5-14.5); RDW Standard Deviation 41.3 fL (36.4-46.3); Red Blood Count 3.64 M/uL (3.93-5.22); White Blood Count 11.13 K/ul (4.8-10.8)
[2022-02-16 21:31] LABS: Alanine Aminotransferase 13 U/L (7-52); Albumin Globulin Ratio 1.3 (0.9-2); Albumin Level 3.5 gm/dl (3.4-5.0); Alkaline Phosphatase 76 U/L (34-104); Amylase 41 U/L (25-115); Anion Gap 11 (3-11); Aspartate Aminotransferase 12 U/L (13-39); BUN Creatinine Ratio 12.8 (10-20); Bilirubin,Total 1.3 mg/dl (0.2-1.0); Blood Urea Nitrogen 5 mg/dl (6-23); Calcium 8.2 mg/dl (8.5-10.1); Carbon Dioxide 17 mmol/L (21-32); Chloride 106 mmol/L (98-107); Creatinine Clr Calc Pharmacy 197.9 ml/min; Est GFR (African American) > 150.0 ml/min; Est GFR (Non-African American) 140.9 ml/min; Globulin 2.6 gm/dl (2.5-4.0); Glucose 116 mg/dl (70-99(Fasting)); Lipase 12 U/L (11-82); Sodium 134 mmol/L (136-145); Total Protein 6.1 gm/dl (6.0-8.3)
--- NOTE | 2022-02-16 21:48 | Obstetrical Progress Note ---
Date of Service February 16, 2022 Assessment & Plan (1) 33 weeks gestation of : (2) Abdominal pain in : Plan continues with pain, not worse, not better. compared to previous, no tachycardia, wbc unchanged, no persistent fever thus far and less contractions, this does not seem clinically like chorioamnionitis which after looking into multiple other causes of her pain, i was uncertain if would declare as more likely. thus far, that is not the case. still uncertain etiology and therefore rec continued observation and repeat labs in am. plan KCL riders due to potassium level. cont ivf as patient continues to say she is not hungry. allow po if that changes. offered pain mgmt, beyond tylenol but she declines. offered benadryl or phenergan to facilitate sleep but she does not want this. prefers no meds. Admission and Anticipated Discharge Date Admission Date: February 16, 2022 Subjective pt discomfort unchanged. nurse able to palpate few ctx and mild. visited pt at bedside after CT results seen, neg for any PE, pulm process. declines meds for pain. Review of Systems Constitutional: as per Subjective / HPI Physical Exam Constitutional: WD/WN, vitals as above occasional tachy, normal pulse ox on RA Genitourinary: OB Exam Monitor Tracing: + external FHT monitor used (Baseline 145 reactive), + external uterine monitor used (Ctx decreased now q 5-10, mild when palpated by nurse), + category I and + normal FHT variability Results & Data ([facility]) Vital Signs (Past 12 Hours) Vital Signs Temp Pulse Resp BP Pulse Ox 02/16/22 17:45 93 H 100 02/16/22 21:37 111 H 97 02/16/22 21:32 96 H 96 02/16/22 21:27 92 H 96 02/16/22 21:22 100 H 97 02/16/22 21:17 92 H 97 02/16/22 21:12 103 H 97 02/16/22 21:07 94 H 96 02/16/22 21:02 109 H 97 02/16/22 20:58 98.8 F 02/16/22 20:57 109 H 97 02/16/22 20:45 104 H 97 02/16/22 20:40 97 H 96 02/16/22 20:35 91 H 96 02/16/22 20:30 105 H 97 02/16/22 20:25 108 H 97 02/16/22 20:20 101 H 97 02/16/22 20:15 104 H 98 02/16/22 20:10 102 H 97 02/16/22 20:05 101 H 97 02/16/22 20:00 102 H 98 02/16/22 19:57 99.9 F H 02/16/22 19:55 102 H 97 02/16/22 19:50 105 H 97 02/16/22 19:45 109 H 97 02/16/22 19:40 102 H 98 02/16/22 19:35 93 H 99 02/16/22 19:30 95 H 100 02/16/22 19:25 97 H 97 02/16/22 19:10 100.2 F H 02/16/22 19:12 90 98/55 L 02/16/22 17:58 95 H 100 02/16/22 17:53 92 H 100 02/16/22 17:48 93 H 100 02/16/22 17:43 93 H 100 02/16/22 17:38 106 H 100 02/16/22 17:28 98 H 99 02/16/22 17:23 100 H 100 02/16/22 17:18 94 H 100 02/16/22 17:13 98 H 100 02/16/22 17:08 94 H 100 02/16/22 17:03 93 H 100 02/16/22 16:58 96 H 100 02/16/22 16:53 94 H 100 02/16/22 16:48 101 H 99 02/16/22 16:43 98 H 100 02/16/22 14:12 98.1 F 100 H 22 106/69 Laboratory Results WBC no change. normal creat, lfts. potassium is low PG Care Time/CCT Total # of Minutes Spent Total Time Spent with Patient: Total time spent is greater than 50% in coordination of care (as documented) at patient's floor/unit and/or counseling patient: Coding Level of Care Code None Diagnoses 33 weeks gestation of Z3A.33 Abdominal pain in O26.899; R10.9
[2022-02-16] MEDS: POTASSIUM CHLORIDE / WTR 10 MEQ/100 ML PLCT IV SCH ×2 (22:11→23:12)
[2022-02-16 22:18] LABS: Basophils # (auto) 0.02 K/uL (0-0.2); Basophils % (auto) 0.2 %; Immature Granulocytes # (auto) 0.06 K/uL (0.00-0.02); Immature Granulocytes % (auto) 0.5 %; Lymphocytes % (auto) 5.4 %; Monocytes # (auto) 0.36 K/uL (0.24-0.82); Monocytes % (auto) 3.2 %; Neutrophils # (auto) 10.09 K/uL (1.4-6.5); Neutrophils % (auto) 90.7 %
[2022-02-17] MEDS: LACTATED RINGER'S 1,000 ML IV SCH (01:46)
[2022-02-17 06:14] LABS: Basophils # (auto) 0.03 K/uL (0-0.2); Basophils % (auto) 0.4 %; Hematocrit (blood only) 29.7 % (34.1-44.9); Hemoglobin 9.8 g/dl (12.0-16.0); Immature Granulocytes # (auto) 0.03 K/uL (0.00-0.02); Immature Granulocytes % (auto) 0.4 %; Lymphocytes # (auto) 0.52 K/uL (1.2-3.4); Mean Corpuscular Hemoglobin 27.2 pg (25.0-34.0); Mean Corpuscular Volume 82.5 fL (80.0-100.0); Mean Platelet Volume 9.1 fL (9.4-12.3); Monocytes # (auto) 0.36 K/uL (0.24-0.82); Monocytes % (auto) 4.9 %; Neutrophils # (auto) 6.44 K/uL (1.4-6.5); Neutrophils % (auto) 87.3 %; Platelet Count 136 K/uL (130-400); RDW Standard Deviation 41.8 fL (36.4-46.3); White Blood Count 7.38 K/ul (4.8-10.8)
[2022-02-17 06:46] LABS: Potassium 3.4 mmol/L (3.5-5.1)
--- NOTE | 2022-02-17 08:34 | Obstetrical Progress Note ---
Date of Service February 17, 2022 Assessment & Plan (1) 33 weeks gestation of : (2) Abdominal pain in : Plan WBC completely normal this am. abd pain better. no significant source found. ok to dc home and pt desires. no evid of betsy. parameters to call reviewed. keep next appt on mon. fhts categ 1, nst reactive. >30min spent face to face and non face to face and documentation. Admission and Anticipated Discharge Date Admission Date: February 16, 2022 Subjective pt feels better this am. still with discomfort at fundus and along sides of abdomen. some nausea she thinks. no vomiting. willing to eat yogurt. no diarrhea. no worsening ctx Review of Systems Constitutional: as per Subjective / HPI Physical Exam Constitutional: WD/WN, vitals as above Gastrointestinal (Abdomen): soft gravid, mild tenderness at fundus. no rebound, guarding and no cvat Genitourinary: OB Exam Monitor Tracing: + external FHT monitor used, + external uterine monitor used (irreg), + category I and + normal FHT variability Results & Data ([facility]) Vital Signs (Past 12 Hours) Vital Signs Temp Pulse Resp BP Pulse Ox 02/17/22 07:29 98.6 F 96 H 20 101/59 L 02/17/22 04:30 18 02/17/22 04:30 98.1 F 18 02/17/22 04:31 100 H 106/58 L 02/17/22 01:39 93 H 97 02/17/22 01:34 89 97 02/17/22 01:29 97 H 98 02/17/22 01:24 102 H 99 02/17/22 01:19 91 H 99 02/17/22 01:14 97 H 100 02/17/22 01:09 97 H 99 02/17/22 01:04 91 H 98 02/17/22 00:59 92 H 98 02/17/22 00:54 87 98 02/17/22 00:49 91 H 98 02/17/22 00:44 88 99 02/17/22 00:39 87 99 02/17/22 00:34 101 H 100 02/17/22 00:29 86 98 02/17/22 00:24 84 99 02/17/22 00:19 86 98 02/17/22 00:14 85 98 02/17/22 00:09 86 97 02/17/22 00:04 84 97 02/16/22 23:59 82 97 02/16/22 23:54 87 97 02/16/22 23:49 86 98 02/16/22 23:44 93 H 97 02/16/22 23:39 86 97 02/16/22 23:34 83 97 02/16/22 23:29 81 98 02/16/22 23:24 82 97 02/16/22 23:19 87 98 02/16/22 23:14 84 98 02/16/22 23:09 86 99 02/16/22 22:55 18 02/16/22 22:55 97.7 F 18 02/16/22 23:04 83 98 02/16/22 22:59 98 H 98 02/16/22 22:54 96 H 109/59 L 98 02/16/22 22:42 88 97 02/16/22 22:37 87 97 02/16/22 22:32 91 H 97 02/16/22 22:27 97 H 97 02/16/22 22:22 87 97 02/16/22 22:17 96 H 97 02/16/22 22:12 94 H 97 02/16/22 22:07 96 H 96 02/16/22 22:02 93 H 96 02/16/22 21:57 94 H 96 02/16/22 21:52 102 H 97 02/16/22 21:47 97 H 97 02/16/22 21:42 98 H 96 02/16/22 21:37 111 H 97 02/16/22 21:32 96 H 96 02/16/22 21:27 92 H 96 02/16/22 21:22 100 H 97 02/16/22 21:17 92 H 97 02/16/22 21:12 103 H 97 02/16/22 21:07 94 H 96 02/16/22 21:02 109 H 97 02/16/22 20:58 98.8 F 02/16/22 20:57 109 H 97 02/16/22 20:45 104 H 97 02/16/22 20:40 97 H 96 02/16/22 20:35 91 H 96 PG Care Time/CCT Total # of Minutes Spent Total Time Spent with Patient: Total time spent is greater than 50% in coordination of care (as documented) at patient's floor/unit and/or counseling patient: Coding Level of Care Code None Diagnoses 33 weeks gestation of Z3A.33 Abdominal pain in O26.899; R10.9
--- NOTE | 2022-02-22 14:26 | Discharge Summary ---
Date of Service Date of admission: February 16, 2022 Date of discharge: February 17, 2022 Admission HPI Per Admitting Provider 31yo (twins) at 33+wks juju presents to L&D with abdominal pain. She notes contractions started last pm at 1030pm. She notes constant abdominal pain starting at that time. Her contractions in the last hour have been about 5. She notes no rom, no vb. +FM. She is normally quite able to tolerate pain but when pain persisted today she told her she needed to come to hospital. She notes eating salad about 5hr ago and tolerating po. No nausea/vomiting. No diarrhea or constipation. Normal bowel movement this am. No urinary sx. No blood in urine. No back pain. The abdominal pain is about at her fundus and then can radiate laterally along sides of her abdomen. Pain not in lower pelvis primarily but occasional there and she was concerned about her uterine incision. No history of trauma to her abdomen. Does have history of c/s x4. PNC c/b 1. IUGR previously in this but at last u/s at 32wks EFW 17% and so taken off protocol 2. H/o MALI in early and history of spotting/bleeding early in , since 26wk has resolved. 3. Rubella non immune-plan mmr pp 4. Prior c/s x 4 PNL rh pos, ri, gbs not done OBH: c/s x 4, sab x 1 GY[facility]: nl paps, no stds Hospital Course (1) 33 weeks gestation of : (2) Abdominal pain in : (3) Previous delivery affecting , antepartum: Plan Patient was kept overnight for observation. She had no sick contacts. Imaging studies were performed based on her complaints to include, limited u/s, limited abdominal u/s and spiral CT chest. No significant findings were noted. Laboratory tests were followed and initial WBC of 11, went to 7 range by am. Her hemoglobin was stable. Her vital signs were stable. She was evaluated for labor and that was not found, with negative FFN. She had one low grade temperature x 1 and took tylenol once for pain. She was allowed to have po and never vomited nor had diarrhea. From her arrival to the next morning her pain improved spontaneously, her other symptoms improved. Her status always remained reassuring, category 1. She was ready to go home. She was to keep followup appointments as scheduled and call sooner with any further complaints. No limitations to her activity were given apart from normal . Coding Level of Care Code None Diagnoses 33 weeks gestation of Z3A.33 Abdominal pain in O26.899; R10.9 Previous delivery affecting , antepartum O34.219
== END 2022-02-17 09:00 | disposition home or self-care (01) ==
LOC: OPB 14:07 → 4S1 14:07

== ENCOUNTER 2022-03-25 05:12 | Inpatient (IN) ==
--- NOTE | 2022-03-17 09:13 | Anesthesiology Consultation ---
Date of Service March 17, 2022 Assessment & Plan (1) Encounter for pre-operative examination: - COVID screening: Per assessment on 03/17: No known COVID-19 positive contacts or current COVID-19 related symptoms. Travel screen negative. At surgeon discretion if preop Covid testing being done. - S/P Repeat (04/19/17): SAB at L3/4 at [facility]. No issues noted per post- op anesthesia progress note. - Anesthesia concern: "One area of my stomach doesn't want to get numb during my epidurals with my c-sections" Chart Review Chart Review: fingerprinter initiated History Surgery Operation Date: 03/25/22 07:30 Proposed Procedures p Section in LD (Delivery of Baby Through Abdominal Incision) - Doretha Lloyd MD, FACOG s Bilateral Tubal Ligation - Doretha Lloyd MD, FACOG Height/Weight Height: 5 ft 1 in Weight: 77.564 kg Allergies Allergy/AdvReac Type Severity Reaction Status Date / Time No Known Drug Allergies Allergy Verified 03/17/22 08:33 Medications Home Medications Medication Instructions Recorded Confirmed Last Taken prenat.vits,simón,[id number] 1 tab PO DAILY 05/04/20 03/17/22 Unknown Past Medical History Medical History No significant past medical history Past Family History Family History Grandmother (Maternal) Colorectal cancer Denies family history of Ovarian cancer Breast cancer Past Surgical History Surgical History History of anesthesia problem "One area of my stomach doesn't want to get numb during my epidurals with my c-sections" History of delivery x4 Repeat (04/19/17): SAB at L3/4 at [facility]. No issues noted per post-op anesthesia progress note. History of cranioplasty Reconstruction of facial bones s/p accident per records Social History Smoking Status: Never smoker Do You Dip or Chew Tobacco: No Hx Alcohol Use: No Hx Substance Use: No substance use type: does not use Lab Results Anesthesia Preop Results Results Anesthesia Widget: WBC 7.38 K/ul (4.8-10.8) 02/17/22 Hgb 9.8 g/dl (12.0-16.0) L 02/17/22 Hct 29.7 % (34.1-44.9) L 02/17/22 Plt 136 K/uL (130-400) 02/17/22 Na 135 mmol/L (136-145) L 02/17/22 K 3.4 mmol/L (3.5-5.1) L 02/17/22 Cl 108 mmol/L (98-107) H 02/17/22 CO2 19 mmol/L (21-32) L 02/17/22 BUN 5 mg/dl (6-23) L 02/16/22 Creat 0.39 mg/dl (0.6-1.2) L 02/16/22 Glucose Level 116 mg/dl (70-99(Fasting)) H 02/16/22 Urine Color Yellow 02/16/22 Urine Appearance Clear (Clear) 02/16/22 Urine pH 8.5 (4.5-7.5) H 02/16/22 Urine Specific [place] 1.008 (1.000-1.030) 02/16/22 Urine Protein Negative (Negative) 02/16/22 Urine Glucose (UA) Negative (Negative) 02/16/22 Urine Ketones Trace (Negative) H 02/16/22 Urine Blood Negative (Negative) 02/16/22 Urine Nitrite Negative (Negative) 02/16/22 Urine Bilirubin Negative (Negative) 02/16/22 Urine Urobilinogen Negative (Negative) 02/16/22 Urine Leukocyte Esterase Negative (Negative) 02/16/22 COVID-19 PCR NEGATIVE (Negative) 02/16/22 Testing Laboratory Results 03/14/22 14:20 Group B Streptococcus Culture - Final Vaginal/Rectal No Group B Strep isolated
--- NOTE | 2022-03-22 09:28 | History & Physical Report ---
Date of Service March 22, 2022 Assessment & Plan (1) Previous delivery affecting , antepartum: Plan: IUP at term with prior C/S x 4. Tere requesting permanent sterilization at the time of the C/S the procedures were reviewed with Tere along with risks including risks for future pregnancies both ectopic and intrauterine and she is willing to proceed. History of Present Illness Chief Complaint: for repeat C/S and bilateral tubal ligation Primary Care Provider: NO PCP Patient is a 32 yo female EDC 04/01/22 who presents at 39 weeks for repeat C/S and bilateral tubal ligation because of unwanted fertility. first C- section was done for failure to progress. she attempted trial of labor with her second and had a repeat . last done at [facility] because of twin gestation.She has had c-sections to date. current complicated by IUGR which resolved by 34 weeks. testing has all been reassuring. She is requesting tubal sterilization with current because of unwanted fertility and multiparity. Allergies Allergy/AdvReac Type Severity Reaction Status Date / Time No Known Drug Allergies Allergy Verified 03/17/22 08:33 Home Medications Medication Instructions Recorded Confirmed Type prenat.vits,simón,[id number] 1 tab PO DAILY 05/04/20 03/17/22 History Patient History Medical History No significant past medical history Surgical History History of anesthesia problem "One area of my stomach doesn't want to get numb during my epidurals with my c-sections" History of delivery x4 Repeat (04/19/17): SAB at L3/4 at [facility]. No issues noted per post-op anesthesia progress note. History of cranioplasty Reconstruction of facial bones s/p accident per records Family History Grandmother (Maternal) Colorectal cancer Denies family history of Ovarian cancer Breast cancer Social History Smoking Status: Never smoker Second Hand Exposure: No; Hx Alcohol Use: No Hx Substance Use: No Preferred Language: [place] Citizen Communication Ability: Effective Box Packer Required: No Beliefs That Will Affect Care: None marital status: marital status details: Baltazar Amador (32) Current Living Situation: Spouse and Family Current Living Situation Comment: lives with spouse, 5 children, outside pets current occupational status: unemployed current occupation: homemaker Feels Safe at Home: Yes Assistive Devices: None Review of Systems All systems reviewed & are unremarkable except as noted in HPI & below Physical Exam Constitutional: WD/WN, vitals as above Respiratory: normal respiratory effort, lungs clear to auscultation Cardiovascular: RRR, no murmur, no edema Gastrointestinal (Abdomen): well healed low transverse scar Psychiatric: A+Ox3, euthymic affect Genitourinary: OB Exam Abdomen: + fundal height (35), + heart tones (150) and + vertex Coding Level of Care Code None Diagnoses Previous delivery affecting , antepartum O34.219
[2022-03-25] MEDS ORDERED: OXYTOCIN 30 UNITS/500 ML BAG IV PRN (05:45)
[2022-03-25] MEDS ORDERED: LACTATED RINGER'S 1,000 ML IV PRN (05:45)
[2022-03-25] MEDS ORDERED: LIDOCAINE 1% LOCAL 20 ML VIAL INFIL PRN (05:45)
[2022-03-25] MEDS ORDERED: CITRIC ACID/SODIUM CITRATE 15 ML UDC PO SCH (06:00)
[2022-03-25] MEDS ORDERED: ceFAZolin 2,000 MG in SYRINGE 0 ML IV SCH (06:00)
[2022-03-25] MEDS ORDERED: LACTATED RINGER'S 1,000 ML IV SCH ×2 (06:00→09:15)
[2022-03-25 06:24] LABS: Basophils # (auto) 0.04 K/uL (0-0.2); Basophils % (auto) 0.6 %; Eosinophils # (auto) 0.07 K/uL (0-0.50); Hematocrit (blood only) 31.1 % (34.1-44.9); Hemoglobin 10.3 g/dl (12.0-16.0); Immature Granulocytes # (auto) 0.02 K/uL (0.00-0.02); Immature Granulocytes % (auto) 0.3 %; Lymphocytes # (auto) 1.85 K/uL (1.2-3.4); Lymphocytes % (auto) 27.7 %; Mean Corpuscular Hemoglobin 27.1 pg (25.0-34.0); Mean Corpuscular Hgb Conc 33.1 g/dL (32.0-36.0); Mean Corpuscular Volume 81.8 fL (80.0-100.0); Mean Platelet Volume 9.4 fL (9.4-12.3); Monocytes # (auto) 0.49 K/uL (0.24-0.82); Monocytes % (auto) 7.3 %; Neutrophils # (auto) 4.22 K/uL (1.4-6.5); Neutrophils % (auto) 63.1 %; Platelet Count 158 K/uL (130-400); RDW Coefficient of Variation 14.7 % (11.5-14.5); RDW Standard Deviation 43.5 fL (36.4-46.3); White Blood Count 6.69 K/ul (4.8-10.8)
[2022-03-25] MEDS ORDERED: PHENYLEPHRINE HCL 10 MG/ML VIAL ONE (06:56)
[2022-03-25] MEDS ORDERED: OXYTOCIN 10 UNITS/ML 10ML VIAL ONE (06:56)
[2022-03-25] MEDS ORDERED: fentaNYL citrate 100 MCG/2 ML VIAL ONE (06:56)
[2022-03-25] MEDS ORDERED: KETOROLAC 30 MG/ML VIAL ONE (06:56)
[2022-03-25] MEDS ORDERED: MoRPHine SULFATE PF 1 MG/ML 10 ML AMP/VIAL ONE (06:56)
[2022-03-25] MEDS ORDERED: ONDANSETRON INJ 2 MG/ML 2 ML VIAL ONE (06:56)
--- NOTE | 2022-03-25 07:27 | History & Physical Bridge Note ---
Date of Service March 25, 2022 History & Physical Bridge Note I have examined the patient, reviewed the History & Physical and in the interval since the performance of the History & Physical I have noted the following changes of clinical significance: no changes noted
[2022-03-25] MEDS ORDERED: NALBUPHINE HCL INJ 10 MG/ML AMP IV PRN (07:55)
[2022-03-25] MEDS ORDERED: NALOXONE HCL 0.08 MG in SYRINGE 1.8 ML IV PRN (07:55)
[2022-03-25] MEDS ORDERED: MoRPHine SULFATE PF 1 MG/ML 10 ML AMP/VIAL INT SPINAL ONE (07:55)
[2022-03-25] MEDS ORDERED: ePHEDrine sulfate 50 MG/ML AMP IV PRN (07:55)
[2022-03-25] MEDS ORDERED: NALOXONE HCL 0.4 MG/1 ML VIAL/CARP IV PRN (07:55)
[2022-03-25] MEDS ORDERED: NALOXONE HCL 1 MG in SODIUM CHLORIDE 0.9% 1000ML 1,000 ML IV PRN (07:55)
[2022-03-25] MEDS ORDERED: ONDANSETRON INJ 2 MG/ML 2 ML VIAL IV PRN (07:55)
[2022-03-25] MEDS ORDERED: diphenhydrAMINE 50 MG/ML VIAL IV PRN (07:55)
[2022-03-25] MEDS ORDERED: LACTATED RINGER'S 500 ML IV PRN (07:55)
[2022-03-25] MEDS ORDERED: HYDROmorphone INJ 0.5 MG/0.5 ML SYR IV PRN (07:55)
[2022-03-25] MEDS ORDERED: KETOROLAC 30 MG/ML VIAL IV PRN ×2 (07:55→09:08)
[2022-03-25] MEDS ORDERED: PROMETHAZINE HCL 6.25 MG in SODIUM CHLORIDE 0.9% 50 ML IV PRN (07:55)
[2022-03-25] MEDS ORDERED: DC INTRASPINAL MORPHINE SCH (08:00)
[2022-03-25] MEDS ORDERED: NO NARCOTICS OR SEDATIVES SCH (08:00)
[2022-03-25] MEDS ORDERED: SODIUM CHLORIDE 0.9% 1000ML 1,000 ML IV SCH (08:00)
[2022-03-25] MEDS ORDERED: ACETAMINOPHEN 1,000 MG/100 ML VIAL IV SCH (08:05)
--- NOTE | 2022-03-25 09:05 | Post Operative Brief Note ---
PG Immediate Post Op with CF Date of Surgery March 25, 2022 Pre & Post Diagnosis Operation Date: 03/25/22 07:30 Pre-Op Diagnosis: prior section x4 multipariety unwanted fertility Post-Op Diagnosis: same absence of right rectus muscle I identified the patient and participated in the time-out.: Yes Procedure Operation Date: 03/25/22 07:30 Actual Procedures p Section in LD for live female infant at 0804 - Doretha Nuno MD, FACOG Surgeon Doretha Lloyd MD, FACOG [employer] Bruce Joy MD, Rebecca Davis MD Estimated Blood Loss 500 Findings Consistent with Post-Op Diagnosis absence of right rectus muscle Specimens Specimen Description: M-[id number] B-cord blood C-right fallopian tube D-left fallopian tube Drains Houser Catheter Anesthesia Type Spinal Disposition Accompanied Patient To Recovery: Yes Disposition: L&D
[2022-03-25] MEDS ORDERED: HYDROCORTISONE ACETATE 25 MG SUPP PR PRN (09:08)
[2022-03-25] MEDS ORDERED: BENZOCAINE 20% AER SPR 82.5 GM CAN EXT PRN (09:08)
[2022-03-25] MEDS ORDERED: DIPHTHERIA/TETANUS/PERTUSSIS 0.5 ML SYR/VIAL IM ONE (09:08)
[2022-03-25] MEDS ORDERED: IBUPROFEN 600 MG TAB PO PRN (09:08)
[2022-03-25] MEDS ORDERED: SENNA 8.6 MG TAB PO PRN (09:08)
[2022-03-25] MEDS ORDERED: MAGNESIUM HYDROXIDE SUSP 30 ML UDC PO PRN (09:08)
--- NOTE | 2022-03-25 09:27 | Operative Report ---
PG Post Operative Report Pre & Post Diagnosis Operation Date: 03/25/22 07:30 Pre-Op Diagnosis: prior section x4 multipariety unwanted fertility Post-Op Diagnosis: same absence of right rectus muscle I identified the patient and participated in the time-out.: Yes Procedure Operation Date: 03/25/22 07:30 Actual Procedures p Section in LD for live female at 0804 - Doretha Nuno MD, FACOG bilateral salpingectomies Surgeon Doretha Lloyd MD, FACOG Multi Sensor Operator Bruce Joy MD, Rebecca Davis MD Estimated Blood Loss 500 Findings Consistent with Post-Op Diagnosis Uterus was gravid and consistent with a term and size. Bilateral ovaries and fallopian tubes were grossly normal. Upon entering the fascia, it was noted that her right rectus muscle was absent. Otherwise there was no significant adhesions present except for the bladder being adherent to the left side of the lower uterine segment. The upper abdomen was also examined and was without adhesions, there was no evidence of theright rectus muscle. the gall bladder and liver edge could not be visualized because of overlying bowel. Specimens placenta to hold bilateral fallopian tubes Drains Houser to straight drainage Anesthesia Type Spinal Complications none Disposition Accompanied Patient To Recovery: Yes Disposition: L&D Indications Patient is a 32 yo female EDC 04/01/[birth year] who presents for repeat C/S and bilateral tubal ligation because of multiparity and unwanted fertility. The patient understands the risk of the procedures and is willing to proceed. Description of Procedure After the patient received effective subarachnoid block she was prepped and draped in usual sterile fashion.A low transverse skin incision was made with a scalpel through her prior scar. The fascia was then entered with the same scalpel and extended with Gan scissors. At this time it was noted that the right rectus muscle was missing. Rizwan clamps on the superior portion of the fascia were used to divide the left rectus muscle off of the overlying fascia in a blunt and sharp dissection.. The bladder was then taken down off the anterior surface of the uterus and placed behind the bladder blade. The lower uterine segment was entered with a scalpel and extended transversely. Membranes were ruptured for clear fluid. The was delivered from the vertex presentation with moderate fundal pressure. A double nuchal cord was reduced prior to delivering the rest of the . The was vigorous upon delivery. The cord was clamped and cut and the infant handed off to Dr. Blackman and the nursery team who were in attendance. The placenta was then manually extracted. The uterus was then exteriorized and covered with a clean lap sponge. The uterine cavity was explored found to be free of any retained placenta or membranes. Uterus was then closed in a single layer with 0 Monocryl suture. This was done in a running locking imbricating fashion. Bleeding at the left side of the uterine incision was secured with several stitches of 0 Monocryl in a [id number] fashion. At this point hemostasis appeared to be satisfactory. Attention was then turned to the salpingectomies. The right fallopian tube was identified and followed to its fimbriated end, and grasped with a Counselor clamp. The LigaSure device was then used to divide the fallopian tube from the mesosalpinx staying in an avascular space. Tube was removed to its insertion on the uterine fundus. Hemostasis was noted to be excellent. The left fallopian tube was then identified and followed to its fimbriated end. It too was grasped in the midportion with a Counselor clamp. The LigaSure device was then used to divide the tube from the mesosalpinx again staying in an avascular plane. The tube was removed at its insertion into the uterine fundus. Both salpingectomy sites revealed excellent hemostasis. After suctioning the posterior cul-de-sac for small amount of blood,and examining the upper abdominal cavity, the uterus was placed back inside the abdominal cavity. The uterine incision was examined once more and a bleeding site along the midsection was controlled with a [id number] stitch of 0 Monocryl. Hemostasis at the left side of the incision continue to remain excellent. The salpingectomy sites also continue to have excellent hemostasis. The gutters were explored and a small amount of bloody fluid were removed. At this point the fascia was closed in a running fashion with 0 Vicryl. Skin edges were reapproximated using a subcuticular stitch of 3-0 Vicryl. Urine remained clear at the end of the case. Patient arrived in recovery area in stable condition. I attest to the content of the Intraoperative Record and any orders documented therein. Any exceptions are noted below. OB Procedure Charges 56427 [id number] Add on Tubal for C/S (bilateral salpingectomies)
[2022-03-25] MEDS: OXYTOCIN 20 UNITS in LACTATED RINGER'S 1,000 ML IV SCH ×2 (10:11→18:28)
--- NOTE | 2022-03-25 10:34 | Anesthesiology Progress Note ---
Date of Service March 25, 2022 Anesthesia Post Procedure Vital Signs Vital Signs: Temp Pulse Resp BP Pulse Ox 03/25/22 09:40 16 03/25/22 09:30 18 03/25/22 09:20 18 03/25/22 09:10 20 03/25/22 09:00 99.0 F 20 03/25/22 05:43 98.4 F 87 18 107/69 03/25/22 10:32 70 99 03/25/22 10:27 65 99 03/25/22 10:24 61 91/61 L 03/25/22 10:22 63 99 03/25/22 10:17 63 98 03/25/22 10:14 71 95/57 L 03/25/22 10:12 74 98 03/25/22 10:07 62 97 03/25/22 10:05 65 95/54 L 03/25/22 10:02 64 97 03/25/22 09:57 66 98 03/25/22 09:55 65 100/65 03/25/22 09:52 70 98 03/25/22 09:47 69 97 03/25/22 09:45 62 100/58 L 03/25/22 09:42 70 98 03/25/22 09:37 71 98 03/25/22 09:35 80 97/60 L 03/25/22 09:32 83 97 03/25/22 09:27 76 112/70 98 03/25/22 09:22 70 97 03/25/22 09:17 84 98 03/25/22 09:14 85 102/56 L 03/25/22 09:12 69 95 03/25/22 09:05 99 03/25/22 09:05 68 03/25/22 09:05 66 94/51 L 03/25/22 09:00 67 99 03/25/22 08:55 68 104/57 L 100 03/25/22 05:31 87 107/69 Transfer of Care Handoff Completed per policy Notes Mental Status: alert / awake / arousable and participated in evaluation Patient Amnestic to Procedure: Yes Nausea / Vomiting: adequately controlled Pain: adequately controlled Airway Patency, RR, SpO2: stable & adequate BP & HR: stable & adequate Hydration State: stable & adequate Neuraxial Anesthesia: was administered and sensory block is resolving Anesthetic Complications: no major complications apparent and Pt Satisfied with anesthetic care
[2022-03-25] MEDS ORDERED: ACETAMINOPHEN 1,000 MG/100 ML VIAL IV PRN (12:30)
[2022-03-25] MEDS: SIMETHICONE 80 MG CHEW PO SCH ×3 (14:11→21:43)
[2022-03-25] MEDS: DOCUSATE SODIUM 100 MG CAP PO SCH (21:43)
[2022-03-26] MEDS ORDERED: oxyCODONE/ACETAMINOPHEN 5mg/325mg TAB PO PRN (01:56)
[2022-03-26] MEDS ORDERED: ZOLPIDEM TARTRATE 5 MG TAB PO PRN (01:56)
[2022-03-26] MEDS ORDERED: MEPERIDINE HCL 50 MG/ML CARP IV PRN (01:56)
[2022-03-26] MEDS ORDERED: PROMETHAZINE HCL 25 MG in SODIUM CHLORIDE 0.9% 50 ML IV PRN (01:56)
[2022-03-26] MEDS ORDERED: ONDANSETRON INJ 2 MG/ML 2 ML VIAL IV PRN (01:56)
[2022-03-26] MEDS ORDERED: diphenhydrAMINE 50 MG/ML VIAL IV PRN (01:56)
[2022-03-26] MEDS ORDERED: diphenhydrAMINE Capsule 25 MG CAP PO PRN (01:56)
--- NOTE | 2022-03-26 05:20 | Obstetrical Progress Note ---
Date of Service <Rebecca MelissaDO kee - Last Filed: 03/26/22 06:15> March 26, 2022 Assessment & Plan <Rebecca MelissaDO kee - Last Filed: 03/26/22 06:15> (1) care following delivery: Patient is PPD 1 s/p C section and doing well. - Eating well, voiding well, ambulating well - Vitals reviewed and within normal limits - Pain well controlled - OOB, ambulation, diet progression as tolerated - Blood type: A+, GBS neg, rubella non immune - Plan to discharge tomorrow - After discharge, 6 [address] follow up with Dr. Nuno <Heather Garcia MD - Last Filed: 03/26/22 07:16> (1) care following delivery: Subjective <Rebecca MelissaDO kee - Last Filed: 03/26/22 06:15> Patient is a 32 yo female is POD #1 following delivery at 39 weeks. She reports feeling well overall this morning. She denies abdominal cramping and 2-3/10 pain well managed without analgesics. Voiding well. Pt says she has urinated 2 times and has not felt like she completely emptied her bladder. Tolerating regular meals overnight and able to ambulate some. She has passed gas but no bowel movement. Persistent lochia with some improvement this morning. Currently breast feeding. Review of Systems Denies fever, chills, sweats. Denies SOB, difficulty breathing, chest pain, palpitations, and chest pressure. Denies breast pain. Denies dysuria. Denies headache or changes in vision. Physical Exam <Rebecca MelissaDO kee - Last Filed: 03/26/22 06:15> General: Alert and oriented. No acute distress. CV: Regular rate and rhythm. No murmurs. Abdomen: Positive bowel sounds. Soft, nontender, and nondistended. Uterus: Fundus firm and palpable 2 cm below umbilicus. Surgical scar covered with bandage. Lower extremities: SCDs on bilaterally and operational. Results & Data ([facility]) <Rebecca GallagherIvis Davis DO - Last Filed: 03/26/22 06:15> Vital Signs (Past 12 Hours) Vital Signs Temp Pulse Resp BP BP Pulse Ox O2 Del Method 03/26/22 03:23 36.7 C 72 18 102/69 99 Room Air 03/26/22 01:04 16 97 03/26/22 00:00 16 99 03/25/22 22:00 16 98 03/25/22 23:57 36.6 C 63 16 93/59 L 98 Room Air 03/25/22 23:00 16 98 03/25/22 22:01 16 97 03/25/22 21:10 16 99 03/25/22 19:35 36.5 C 60 16 90/59 L 98 Room Air 03/25/22 20:27 16 97 03/25/22 19:35 16 98 03/25/22 18:28 20 100 03/25/22 17:39 18 100 <Heather Garcia MD - Last Filed: 03/26/22 07:16> Co-Signing Physician Notes Resident Physician Supervision Note: I interviewed and examined the patient. Discussed with Dr. Davis and agree with findings and plan as documented in the note. Any exceptions or clarifications are listed here: Dressing removed by attending, incision c/d/i beneath. Patient to ambulate, regular diet, shower, voiding continues. Routine postoperative care today. Documented By: Heather Garcia MD, FACOG Resident Activity Tracking <Rebecca Davis DO - Last Filed: 03/26/22 06:15> Resident Involvement: Resident Care Provided Care Provided: OB Delivery
[2022-03-26 06:38] LABS: Basophils # (auto) 0.03 K/uL (0-0.2); Basophils % (auto) 0.4 %; Eosinophils # (auto) 0.07 K/uL (0-0.50); Hemoglobin 10.4 g/dl (12.0-16.0); Immature Granulocytes # (auto) 0.03 K/uL (0.00-0.02); Immature Granulocytes % (auto) 0.4 %; Lymphocytes # (auto) 1.48 K/uL (1.2-3.4); Lymphocytes % (auto) 20.5 %; Mean Corpuscular Hemoglobin 26.8 pg (25.0-34.0); Mean Corpuscular Hgb Conc 32.5 g/dL (32.0-36.0); Mean Corpuscular Volume 82.5 fL (80.0-100.0); Mean Platelet Volume 9.6 fL (9.4-12.3); Monocytes # (auto) 0.43 K/uL (0.24-0.82); Neutrophils # (auto) 5.18 K/uL (1.4-6.5); Neutrophils % (auto) 71.7 %; Platelet Count 158 K/uL (130-400); RDW Coefficient of Variation 15.1 % (11.5-14.5); RDW Standard Deviation 45.2 fL (36.4-46.3); Red Blood Count 3.88 M/uL (3.93-5.22); White Blood Count 7.22 K/ul (4.8-10.8)
[2022-03-26] MEDS: SIMETHICONE 80 MG CHEW PO SCH ×4 (07:24→20:20)
[2022-03-26] MEDS: DOCUSATE SODIUM 100 MG CAP PO SCH ×2 (07:24→20:20)
[2022-03-26] MEDS: PRENATAL VITAMIN 1 TAB PO SCH (07:24)
[2022-03-26] MEDS: FERROUS SULFATE 325 MG TAB PO SCH (07:24)
[2022-03-26] MEDS ORDERED: bisacodyL 5 MG TABEC PO SCH (20:00)
[2022-03-27 06:44] LABS: Hematocrit (blood only) 32.1 % (34.1-44.9); Hemoglobin 10.5 g/dl (12.0-16.0)
[2022-03-27] MEDS: SIMETHICONE 80 MG CHEW PO SCH (08:21)
[2022-03-27] MEDS: PRENATAL VITAMIN 1 TAB PO SCH (08:21)
[2022-03-27] MEDS: DOCUSATE SODIUM 100 MG CAP PO SCH (08:21)
[2022-03-27] MEDS: FERROUS SULFATE 325 MG TAB PO SCH (08:21)
--- NOTE | 2022-03-27 08:34 | Obstetrical Progress Note ---
Date of Service March 27, 2022 Assessment & Plan (1) care following delivery: satisfactory /postop exam would like to be discharged today if possible encouraged her to take tylenol for pain follow up in 6 weeks or PRN Subjective Ambulation: ambulating normally Voiding: no voiding problems Passing Gas:: Yes Diet Tolerance:: regular diet Lochia:: Small Feeding Type:: breast feeding (some formula supplementation) having right shoulder pain yesterday that is much better today. heat applied helped alot. has not taken any pain medicine as they upset her stomach. Review of Systems All systems reviewed & are unremarkable except as noted in HPI & below Physical Exam Constitutional WD/WN, vitals as above Psychiatric A+Ox3, euthymic affect Genitourinary OB Exam Abdomen: + fundal height Fundus: + firm and + relation to umbilicus (2 below) incision dry and intact- no erythema or induration. Results & Data ([facility]) Vital Signs (Past 12 Hours) Vital Signs Temp Pulse Resp BP BP Pulse Ox O2 Del Method 03/27/22 03:59 98.4 F 74 18 107/70 98 Room Air 03/26/22 23:05 98.2 F 88 16 111/74 98 Room Air
[2022-03-27] MEDS ORDERED: bisacodyL 10 MG SUPP PR PRN (09:08)
--- NOTE | 2022-03-27 22:33 | Discharge Summary (DS) ---
DATE OF ADMISSION: 03/25/2022 DATE OF DISCHARGE: 03/27/2022 PRINCIPAL DIAGNOSIS: Intrauterine at term, with prior sections x4, unwanted fertility, multiparity. PRINCIPAL PROCEDURES: Repeat low transverse section and bilateral salpingectomies. HOSPITAL COURSE: The patient is a 32-year-old 6, para 4-0-1-5 female who presented at 39 weeks for repeat section and bilateral tubal ligation. This was done without any complications, although during the course of the surgery, she was noted to have absence of her right rectus muscle. Of note, she had been admitted for diffuse abdominal pain at 33 weeks for which a definitive etiology was not determined. There were no complications with the surgery. The patient had an uncomplicated postoperative course. She was eating a regular diet on her first postop day, voiding without difficulty and is currently not taking any pain medication. Hemoglobin on admission was 10.3, hematocrit of 31.1. On first postop day, hemoglobin 10.4, hematocrit 32.0. Second postop day, hemoglobin 10.5 and hematocrit of 32.1. She was sent home in good condition. She declines any pain medication prescriptions. She will take Tylenol 500 mg every 4 to 6 hours as needed for pain. She is to call for a temperature of 101 degrees or higher, heavy vaginal bleeding, burning with urination, increased redness, drainage or pain in her incision, calf tenderness or any other concerns. We will see her in the office in 6 weeks for a and postoperative visit. Job ID: [id number]
== END 2022-03-27 12:45 | disposition home or self-care (01) | DRG 785 ==
LOC: 4S1 05:12 → EDSTATUS 07:30 → 4E2 15:09
PROC: M.PPTLD (2022-03-25 07:30)